=== PATIENT | male | born 1930 | race Caucasian/White ===

== ENCOUNTER 2016-10-23 16:20 | Inpatient (IN) | payer OTHER ==
[~2016-10-23] VITALS: Ht 180.3 cm; Wt 88.5 kg
--- NOTE | ~2016-10-23 | CATHLAB ---
[facility] [place] [address] INVASIVE PROCEDURE REPORT Name: VAUGHN BUSTAMANTE JR Room #: 204-P [facility] [id number] Admission: 10/23/16 Attend Phys: Natalio Loredo Discharge: 10/25/16 Date of : 30 Date of Service: 10/24/16 0947 Report #: [id number] THIS REPORT FOR: //name// CC: Rocky Loredo DATE OF SERVICE: 10/24/2016 INDICATIONS: Unstable angina. Full risks, benefits and alternatives of cardiac catheterization were explained to the patient. All questions were answered. Informed consent was obtained. The right groin area was prepped and draped in a sterile manner. Lidocaine was given subcutaneously. A 4-Vincentian sheath was inserted into the right femoral artery via modified Seldinger technique. CORONARY ANATOMY: 1. The left main artery is a large caliber vessel, with no flow-limiting lesions. 2. The LAD is a moderate sized caliber vessel, traveling down the anterior wall and wrapping around the apex. There were no flow-limiting lesions in the LAD. There are a few small diagonal arteries, with no flow-limiting lesions. 3. Left circumflex artery is a moderate sized caliber vessel, supplying several small obtuse marginal arteries. There is one distal moderate size obtuse marginal artery. There were no flow-limiting lesions in the left circumflex artery. 4. The RCA is a moderate to large size caliber vessel, dominant, supplying a PDA and a posterolateral branch. There were no flow-limiting lesions in the RCA. The PDA has mild diffuse disease in the proximal segment, less than 20%. A left ventriculogram was performed revealing normal LV systolic function, ejection fraction of 55%. The LVEDP is 18 mmHg. There is no gradient across the outflow tract. IMPRESSION: 1. Angiographically normal epicardial vessels. 2. Mild disease in a small PDA. 3. Normal LV systolic function. 4. Recommend medical therapy. <ELECTRONICALLY SIGNED> By: Bj Barba MD 10/28/16 0008 0947 1218 Bj Barba MD /nt
--- NOTE | ~2016-10-23 | HC ---
[facility] [place] [address] CONSULTATION Name: VAUGHN BUSTAMANTE I Room #: 204-P [facility] IN M.R.#: [id number] Admission: 10/23/16 Attend Phys: Natalio Loredo MD Discharge: 10/25/16 Date of : 30 Report #: [id number] THIS REPORT FOR: //name// CC: Rocky Loredo REASON FOR CONSULTATION: Non-ST segment elevation myocardial infarction. The patient is an 86-year-old with a history of coronary artery disease, COPD, who presented to [facility] with increasing shortness of breath, also with a chest heaviness, which feels like a brick is sitting on his chest. This is currently resolved, but he had some again last night. He denies any PND or orthopnea. He reports chronic shortness of breath mostly due to his COPD. He denies any PND or orthopnea. He denies presyncope or syncope. At [facility], he had a nuclear stress test that showed a reversible lateral wall defect. His last echo was in 09/25/2016, EF 55% with moderate aortic stenosis. PAST MEDICAL HISTORY: 1. Coronary artery disease. 2. Stents in the past. 3. Prior non-ST segment elevation IL. 4. COPD. 5. Obstructive sleep apnea. 6. Restless leg syndrome. 7. 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 SOCIAL HISTORY: Does not smoke. FAMILY HISTORY: Noncontributory. ALLERGIES: Include KEFLEX and OXYCONTIN. MEDICATIONS: Include Flomax, tramadol, Lovenox, albuterol, allopurinol, aspirin, gabapentin, latanoprost eye drops, metoprolol 12.5 b.i.d., nitroglycerin p.r.n., Protonix and simvastatin. REVIEW OF SYSTEMS: Twelve point review of systems was performed and was negative other than what I mentioned above, but he does mentions some chronic phantom leg pain on the left side. PHYSICAL EXAMINATION: VITAL SIGNS: Temperature is 36.3, pulse 75, respiration 18, blood pressure 110/59, sats 95%. GENERAL: He is no acute distress. HEENT: Oropharynx is clear. NECK: Supple. No thyromegaly or carotid bruits. HEART: Regular rate and rhythm, normal S1 and S2. No S3, S4. [facility] [address] [place] [address] CONSULTATION Name: VAUGHN BUSTAMANTE I Room #: 204-P [facility] IN M.R.#: [id number] Admission: 10/23/16 Attend Phys: Natalio Loredo MD Discharge: 10/25/16 Date of : 30 Report #: [id number] LUNGS: Clear to auscultation bilaterally. ABDOMEN: Soft, nontender, nondistended with no hepatosplenomegaly. EXTREMITIES: Left leg is amputated otherwise the pulses are okay on the right side with no edema. NEUROLOGIC: Cranial nerves 2-12 are intact. LABORATORY DATA: White count 5, hemoglobin 13, platelets 186. Potassium 3.4, creatinine 1.3. Troponin was negative here. His 12-lead EKG performed here and both showed normal sinus rhythm with an intraventricular conduction delay and no ischemic changes. ASSESSMENT AND PLAN: In summary, the patient is an 86-year-old with known coronary artery disease presenting with shortness of breath, chest pain and a positive troponin and normal nuclear stress test. Based on these findings, we recommend undergoing a cardiac catheterization with possible intervention. I discussed the details of the procedure including the risks, which include but not limited to bleeding, vascular damage, stroke, and IL. He and his daughter understand these risks and are willing to proceed. <ELECTRONICALLY SIGNED> By: Jarrett Morgan MD 10/27/16 0853 0835 1231 Jarrett Morgan MD /nt
--- NOTE | ~2016-10-23 | EKG ---
[address] [address] ELECTROCARDIOGRAM REPORT Name: VAUGHN BUSTAMANTE I Room #: 204-P ADM IN M.R.#: [id number] Admission: 10/23/16 Attend Phys: Natalio Loredo MD Discharge: Date of : 30 Report #: [id number] THIS REPORT FOR: //name// [facility] Test Date: 2016-10-24 Test Time: 06:48:00 Pat Name: VAUGHN BUSTAMANTE Department: Room: 204 P Gender: M [employer] Intern: sindhu : 1930 Requested By: Joyce Tim Order Number: [id number] MD: Srinivasan Valenzuela Measurements Intervals [place] Rate: 65 P: 22 CA: 207 QRS: -35 QRSD: 126 T: 0 QT: 465 QTc: 484 Interpretive Statements Sinus rhythm Nonspecific intraventricular conduction delay Probable anteroseptal infarct, old Baseline wander in lead(s) I,III,aVR,aVL No previous ECG available for comparison Electronically Signed On 10-24-2016 9:39:17 CDT by Srinivasan Valenzuela [email or web address] <ELECTRONICALLY SIGNED> By: Srinivasan Valenzuela MD, [facility] 10/24/16 0939 0648 0648 Srinivasan Valenzuela MD, [facility] /EPI
--- NOTE | ~2016-10-23 | H ---
[facility] [address] [place] [address] HISTORY AND PHYSICAL Name: VAUGHN BUSTAMANTE JR Room #: 204-P [facility] IN M.R.#: [id number] Admission: 10/23/16 Attend Phys: Natalio Loredo MD Discharge: 10/25/16 Date of : 30 Report #: [id number] THIS REPORT FOR: //name// CC: Rocky Loredo DATE OF SERVICE: 10/23/2016 ATTENDING PHYSICIAN: Dr. Perrin. PRIMARY CARE PHYSICIAN: Dr. Rocky Grover. CHIEF COMPLAINT: Dyspnea. HISTORY OF PRESENT ILLNESS: The patient is an 86-year-old male who was originally admitted at [facility] for this dyspnea. He said this had been going on for about 6 months. He also had had some lower extremity edema and some associated chest pain. He initially was felt to have some CHF exacerbation. He also had a mildly elevated troponin upon admission, which measured 0.169. He was given Lasix. He eventually was seen by Cardiology and underwent a 2 day stress test. The stress test was completed on 10/23/2016 and showed reversible ischemia on the lateral wall. He denies any history of coronary artery disease, although this has been mentioned in previous documentation. He says he has had 2 different heart catheterization but has never had any stents per Dr. Vamsi martinez who saw him with Cardiology. He just had an echo done on 09/25/2016, which showed an EF of 55% with aortic valve regurgitation, moderate diastolic dysfunction, mild tricuspid and mitral valve regurgitations, it was recommended based on this abnormal stress test that he undergo a cardiac catheterization; therefore, he was transferred to [facility] for this to be done. The patient is very upset upon my arrival, he did not like to be awakened at 11:00 at night. When he arrived, he was going to be having his heart catheterization immediately. He was not very cooperative at all during the questioning or the exam and basically just asked me to leave and come back in the morning. Therefore, most of his information was obtained for the [facility] records and our prior records. He was able to state that he does not have any current chest pain. PAST MEDICAL HISTORY: Ischemic cardiomyopathy, COPD, restless legs syndrome, history of liposarcoma with leg amputation, chronic constipation, BPH, phantom limb pain, coronary artery disease, obstructive sleep apnea, CVA, esophageal stricture, hiatal hernia. PAST SURGICAL HISTORY: Back stimulator placement, left leg amputation, TURP, T10 to an L2 laminectomy, left hip disarticulation, tonsillectomy with a nasal septoplasty and uvulopalatopharyngoplasty, cholecystectomy, Esophageal dilatation and the cervical diskectomy. He also says there is many other [facility] [address] [address] HISTORY AND PHYSICAL Name: VAUGHN BUSTAMANTE I Room #: 204-P [facility] IN M.R.#: [id number] Admission: 10/23/16 Attend Phys: Natalio Loredo MD Discharge: 10/25/16 Date of : 30 Report #: [id number] surgeries that he cannot remember them. ALLERGIES: KEFLEX causes a rash and OXYCONTIN causes a rash. HOME MEDICATIONS: Spiriva 1 puff daily, albuterol nebulizer q. 6 hours p.r.n., Flomax 0.4 mg at bedtime, Iron 325 mg daily, Lovenox 40 mg at bedtime, simvastatin 40 mg daily, nitro p.r.n., metoprolol 12.5 mg b.i.d., aspirin 81 mg daily, Fountain 10/325 one tab q. 6 hours p.r.n., Neurontin 300 mg t.i.d., Mirapex 0.25 mg at bedtime, eyedrops at bedtime, bisacodyl suppository p.r.n., Colace 100 mg b.i.d., Senna 8.6 mg b.i.d., MiraLax 17 g daily p.r.n., Protonix 40 mg daily and hydrocortisone rectal cream b.i.d., allopurinol 100 mg b.i.d., and trazodone 25 mg at bedtime. SOCIAL HISTORY: The patient lives at a shelter. He is a . He says he does not ambulate because of his prosthesis begets around in the scooter or wheelchair. Denies any tobacco or alcohol use. [facility] records do show that he is a DNR. FAMILY HISTORY: Significant for heart disease and breast cancer. REVIEW OF SYSTEMS: This was unobtainable due to patient's uncooperativeness. PHYSICAL EXAMINATION: GENERAL: The patient is an alert male in no acute distress. VITAL SIGNS: Temperature is 36.5, heart rate 75, respirations 18, blood pressure is 124/70, oxygen 92% on room air. HEENT: Unable to evaluate. Oral mucosa unable to evaluate. NECK: No JVD was noted. CARDIOVASCULAR: Normal S1, S2. No murmurs. RESPIRATORY: Upper lobes were clear, otherwise unable to evaluate. ABDOMEN: Unable to evaluate. VASCULAR: He does have a left lower extremity amputation. Otherwise, unable to evaluate on the right. NEUROLOGIC: The patient was alert. Speech is clear. He was moving around in bed without difficulty. There was no weakness noted. PSYCHIATRIC: The patient is very upset and frustrated and not forthcoming with information at all. LABORATORY DATA AND DIAGNOSTICS: Labs done at [facility] showed a WBC of 5.8, hemoglobin 13.3, platelets 153. Sodium 139, potassium 3.9, BUN 16, creatinine 1.1, glucose 95, triglycerides are 78, cholesterol 130, HDL 48 and LDL 68. ASSESSMENT AND PLAN: 1. Dyspnea with abnormal stress test. The patient was sent here for cardiac catheterization, we will consult Cardiology for further recommendations. He did have mildly elevated troponins at [facility] but those have trended down. [facility] [address] [place] [address] HISTORY AND PHYSICAL Name: VAUGHN BUSTAMANTE I Room #: 204-P [facility] IN M.R.#: [id number] Admission: 10/23/16 Attend Phys: Natalio Loredo MD Discharge: 10/25/16 Date of : 30 Report #: [id number] 2. Chronic respiratory failure due to chronic obstructive pulmonary disease. This is stable. No signs of exacerbation, add breathing treatments p.r.n. 3. Obstructive sleep apnea. We will uses CPAP at night. 4. History of cerebrovascular accident. I did not see any residual effects. 5. Chronic pain, on chronic narcotics. This is mostly due to his phantom limb pain for which he has seen pain management in the past. He does have a back stimulator in place which he actually mention he wants removed. Continue home pain meds. 6. CODE STATUS: The patient is a DNR. 7. Deep venous thrombosis prophylaxis, place sequential compression devices. We will continue to follow the patient closely throughout the hospitalization and make changes based on clinical status. <ELECTRONICALLY SIGNED> By: AGUILA Nguyen 10/28/16 0608 0720 1034 AGUILA Nguyen /nt
--- NOTE | ~2016-10-23 | EKG ---
[address] [address] ELECTROCARDIOGRAM REPORT Name: VAUGHN BUSTAMANTE I Room #: 204-P ADM IN M.R.#: [id number] Admission: 10/23/16 Attend Phys: Natalio Loredo MD Discharge: Date of : 30 Report #: [id number] THIS REPORT FOR: //name// [facility] Test Date: 2016-10-24 Test Time: 00:24:10 Pat Name: VAUGHN BUSTAMANTE Department: Room: 204 P Gender: M [employer]orer [employer]: . : 1930 Requested By: Joyce Tim Order Number: [id number] MD: Srinivasan Valenzuela Measurements Intervals [place] Rate: 83 P: 48 PA: 192 QRS: -37 QRSD: 117 T: 77 QT: 419 QTc: 493 Interpretive Statements Sinus rhythm Nonspecific IVCD with LAD Probable anteroseptal infarct, old No previous ECG available for comparison Electronically Signed On 10-24-2016 9:38:05 CDT by Srinivasan Valenzuela [email or web address] <ELECTRONICALLY SIGNED> By: Srinivasan Valenzuela MD, [facility] 10/24/16 0938 0024 Srinivasan Valenzuela MD, [facility] /EPI
[~2016-10-23 16:20] MED LIST: ADULT LOW DOSE81 MG PO; ALEVE220 MG PO; CALCIUM 600 +1 EAC5 PO; CELEXA 20 MG TA20 M1 PO; CIPROFLOXACIN500 M1 PO; CLONAZEPAM PO; COLESTID1 GM PO; DESYREL50 MG PO; FENTANYL PA50 MCG/HR TP; FLOMAX PO; FUROSEMIDE 80 M80 M1 PO; K-DUR10 ME1 PO; LEXAPRO20 MG PO; LIDODERM 5%1 PATC1 TRANSDERM; LUNESTA2 MG PO; LYRICA 75 MG CA75 MG PO; MIRALAX255 GM PO; MIRAPEX0.125 MG PO; MIRAPEX0.25 MG PO; NEPHROCAPS SOFT1 CAP PO; NEURONTIN 400400 M1 PO; OXYCONTIN15 MG PO; OXYCONTIN20 M1 PO; PRILOSEC 10MG C10 M1 PO; PRILOSEC 20 MG20 MG PO; REQUIP XL2 MG PO; RESTORIL15 MG PO; STOOL SOFTENER50 MG PO; VICODIN 5-5001 EACH PO; VITAMIN B-12500 MCG PO; ZIPSOR25 MG PO
[2016-10-23 19:51] VITALS: BP 124/70
[2016-10-23] MEDS ORDERED: ACCUNEB SO1.25 MG/1 INH (23:08)
[2016-10-23] MEDS ORDERED: ALLOPURINOL 10100 M1 PO (23:08)
[2016-10-23] MEDS ORDERED: XALATAN2.5 ML OPHTHALMIC (23:09)
[2016-10-23] MEDS ORDERED: NEURONTIN 300300 M1 PO (23:09)
[2016-10-23] MEDS ORDERED: SPIRIVA INH (23:10)
[2016-10-23] MEDS ORDERED: BISACODYL SUPP10 MG RECTAL (23:11)
[2016-10-23] MEDS ORDERED: ENOXAPARIN40 MG/0.1 SUBQ (23:12)
[2016-10-23] MEDS ORDERED: COL-RITE100 MG PO (23:12)
[2016-10-23] MEDS ORDERED: FERROUS SULFAT324 M1 PO (23:13)
[2016-10-23] MEDS ORDERED: NORCO 10-325 T1 EACH PO (23:14)
[2016-10-23] MEDS ORDERED: HYDROCORTISONE30 GM RC (23:15)
[2016-10-23] MEDS ORDERED: TOPROL XL25 MG PO (23:17)
[2016-10-23] MEDS ORDERED: NITROGLYCERIN0.4 MG SUBLING (23:17)
[2016-10-23] MEDS ORDERED: CHLORASEPTIC177 ML MM (23:18)
[2016-10-23] MEDS ORDERED: PROTONIX40 M1 PO (23:18)
[2016-10-23] MEDS ORDERED: SIMVASTATIN40 MG PO (23:19)
[2016-10-23] MEDS ORDERED: SENNA8.6 MG PO (23:19)
[2016-10-24] VITALS (17 sets, daily range): BP systolic 94–137; BP diastolic 43–77
[2016-10-24 04:39] LABS: CALCIUM 8.5 mg/dL (8.5-10.1); CREATININE 1.3 mg/dL (0.7-1.3); POTASSIUM 3.4 mmol/L (3.5-5.1)
[2016-10-24 05:30] LABS: HEMATOCRIT 41.6 % (42.0-52.0); HEMOGLOBIN 13.9 gm/dL (14.0-18.0); MCH 31.5 pg (26.0-34.0); MCHC 33.3 g/dL (28.0-37.0); MCV 94.5 fL (80.0-100.0); RBC 4.4 mil/uL (4.50-6.00); RDW 15.4 % (10.5-14.5); WBC 5.7 thou/uL (4.0-11.0)
[2016-10-25 03:45] LABS: HEMATOCRIT 42.5 % (42.0-52.0); HEMOGLOBIN 14.1 gm/dL (14.0-18.0); MCH 31.3 pg (26.0-34.0); MCHC 33.1 g/dL (28.0-37.0); MCV 94.5 fL (80.0-100.0); RBC 4.5 mil/uL (4.50-6.00); RDW 15.6 % (10.5-14.5)
[2016-10-25 03:57] LABS: CALCIUM 8.4 mg/dL (8.5-10.1); CREATININE 1.2 mg/dL (0.7-1.3); POTASSIUM 4.2 mmol/L (3.5-5.1)
[2016-10-25 08:00] VITALS: BP 155/86
[2016-10-25] MEDS ORDERED: LEVAQUIN 500 M500 M1 PO (09:21)
[2016-10-25 12:00] VITALS: BP 126/90
== END 2016-10-25 13:45 | DRG 280 ==
LOC: 2N 16:20
PROVIDERS: Internal Medicine Cardiovascular Disease; Nurse Practitioner Acute Care
PROC: B2111ZZ Fluoroscopy of Multiple Coronary Arteries using Low Osmolar Contrast (ICD-10-PCS; principal; 2016-10-24)
PROC: B2151ZZ Fluoroscopy of Left Heart using Low Osmolar Contrast (ICD-10-PCS; principal; 2016-10-24)
PROC: 4A023N7 Measurement of Cardiac Sampling and Pressure, Left Heart, Percutaneous Approach (ICD-10-PCS; principal; 2016-10-24)
DX: I21.4 Non-ST elevation (NSTEMI) myocardial infarction (principal); J18.9 Pneumonia, unspecified organism; J96.10 Chronic respiratory failure, unspecified whether with hypoxia or hypercapnia; F11.20 Opioid dependence, uncomplicated; Z66 Do not resuscitate; J44.9 Chronic obstructive pulmonary disease, unspecified; I25.110 Atherosclerotic heart disease of native coronary artery with unstable angina pectoris; G47.33 Obstructive sleep apnea (adult) (pediatric); G25.81 Restless legs syndrome; I25.5 Ischemic cardiomyopathy; K59.09 Other constipation; I71.2 Thoracic aortic aneurysm, without rupture; I10 Essential (primary) hypertension; N40.0 Benign prostatic hyperplasia without lower urinary tract symptoms; Z96.9 Presence of functional implant, unspecified; G89.29 Other chronic pain; Z79.899 Other long term (current) drug therapy; Z79.82 Long term (current) use of aspirin; Z95.5 Presence of coronary angioplasty implant and graft; I25.2 Old myocardial infarction; Z89.612 Acquired absence of left leg above knee; Z88.1 Allergy status to other antibiotic agents; Z88.6 Allergy status to analgesic agent; Z86.73 Personal history of transient ischemic attack (TIA), and cerebral infarction without residual deficits; Z90.49 Acquired absence of other specified parts of digestive tract; Z80.3 Family history of malignant neoplasm of breast; Z82.49 Family history of ischemic heart disease and other diseases of the circulatory system
CPT/HCPCS: 10081

== ENCOUNTER 2017-11-26 15:21 | Emergency (ER) | payer OTHER, MEDICARE ==
[~2017-11-26] VITALS: Ht 180.3 cm; Wt 79.4 kg
[~2017-11-26 15:21] MED LIST changes: +ACCUNEB SO1.25 MG/1 INH; +ALLOPURINOL 10100 M1 PO; +BISACODYL SUPP10 MG RECTAL; +CHLORASEPTIC177 ML MM; +COL-RITE100 MG PO; +ENOXAPARIN40 MG/0.1 SUBQ; +FERROUS SULFAT324 M1 PO; +HYDROCORTISONE30 GM RC; +LEVAQUIN 500 M500 M1 PO; +NEURONTIN 300300 M1 PO; +NITROGLYCERIN0.4 MG SUBLING; +NORCO 10-325 T1 EACH PO; +PROTONIX40 M1 PO; +SENNA8.6 MG PO; +SIMVASTATIN40 MG PO; +SPIRIVA INH; +TOPROL XL25 MG PO; +XALATAN2.5 ML OPHTHALMIC
== END 2017-11-26 17:43 | disposition home or self-care (01) ==
LOC: ER 15:21
DX: K22.2 Esophageal obstruction (principal); K21.9 Gastro-esophageal reflux disease without esophagitis; J44.9 Chronic obstructive pulmonary disease, unspecified; I50.9 Heart failure, unspecified; F32.9 Major depressive disorder, single episode, unspecified; F41.9 Anxiety disorder, unspecified; Z88.1 Allergy status to other antibiotic agents; Z88.5 Allergy status to narcotic agent